=== PATIENT | female | born 1990 | race African-American/Black ===

== ENCOUNTER 2017-08-28 12:52 | Emergency (ER) | payer OTHER, MEDICAID ==
[~2017-08-28] VITALS: Ht 167.6 cm; Wt 90.7 kg
[~2017-08-28 12:52] MED LIST: ACETAMINOPHEN-1 EAC1 PO; DIPHENHIST50 MG PO; PENICILLIN V P500 MG PO; PRENATAL; ZPAK PO
[2017-08-28 13:48] LABS: INFLUENZA A ANTIGEN None Detected (None Detect)
[2017-08-28] MEDS ORDERED: BUTALB-APAP-CA1 EACH PO ×2 (13:56→13:58)
[2017-08-28 14:21] VITALS: BP 122/89
== END 2017-08-28 14:22 | disposition home or self-care (01) ==
LOC: M.ERS 12:52
PROVIDERS: Physician Assistant
DX: J11.1 Influenza due to unidentified influenza virus with other respiratory manifestations (principal); Z98.890 Other specified postprocedural states

== ENCOUNTER 2018-06-26 18:57 | Emergency (ER) | payer MEDICAID ==
[~2018-06-26] VITALS: Ht 172.7 cm; Wt 90.7 kg
[~2018-06-26 18:57] MED LIST changes: +BUTALB-APAP-CA1 EACH PO
[2018-06-26] MEDS ORDERED: DICLEGIS DR 101 EACH PO (19:08)
[2018-06-26 19:15] LABS: URINE BILIRUBIN NEGATIVE (Negative); URINE BLOOD 1+ (Negative); URINE CLARITY CLEAR; URINE COLOR YELLOW; URINE GLUCOSE-RANDOM NEGATIVE (Negative); URINE KETONES NEGATIVE (Negative); URINE LEUKOCYTES-REFLEX NEGATIVE (Negative); URINE NITRITE-REFLEX NEGATIVE (Negative); URINE PROTEIN NEGATIVE (Negative)
[2018-06-26 19:25] LABS: SQUAMOUS >10 Many /LPF (0-3)
[2018-06-26 19:26] LABS: BACTERIA-REFLEX 1-9 Few /HPF (None Seen); CASTS None Seen /LPF (None Seen); CRYSTALS None Seen /LPF (None Seen); URINE RBC 0-2 Rare /HPF (0-2); URINE WBC-REFLEX 0-5 Rare /HPF (0-5)
[2018-06-26 19:29] LABS: ABSOLUTE BASOPHILS 0.1 thou/uL (0.0-0.2); ABSOLUTE EOSINOPHILS 0.2 thou/uL (0.0-0.7); ABSOLUTE LYMPHOCYTES 3.1 thou/uL (0.8-5.3); ABSOLUTE NEUTROPHILS 4.5 thou/uL (1.6-8.1); BASOPHILS 0.6 %; EOSINOPHILS 2.2 %; HEMOGLOBIN 11.8 gm/dL (12.0-15.0); LYMPHOCYTES 34.9 %; MCH 27.9 pg (26.0-34.0); MCHC 33.7 g/dL (28.0-37.0); MCV 82.9 fL (80.0-100.0); MONOCYTES 11.6 %; MPV 9.4 fl. (7.2-11.1); NUCLEATED RBCS 0 /100WBC; PLATELET COUNT* 211 thou/uL (150-400); POLYS 50.7 %; RBC 4.22 mil/uL (4.20-5.00); RDW-CV 14.4 % (10.5-14.5); WBC 8.9 thou/uL (4.0-11.0)
[2018-06-26 19:40] LABS: CREATININE 0.7 mg/dL (0.6-1.3); POTASSIUM 3.5 mmol/L (3.5-5.1)
[2018-06-26 19:44] LABS: ALBUMIN 3.6 g/dL (3.4-5.0); TOTAL BILIRUBIN 0.5 mg/dL (<0.1-1.0); TOTAL PROTEIN 7.2 g/dL (6.4-8.2)
[2018-06-26 21:20] VITALS: BP 113/65
== END 2018-06-26 21:22 | disposition home or self-care (01) ==
LOC: M.ERS 18:57
PROVIDERS: Physician Assistant
DX: O26.891 Other specified pregnancy related conditions, first trimester (principal); R10.32 Left lower quadrant pain; Z3A.01 Less than 8 weeks gestation of pregnancy; Z98.890 Other specified postprocedural states

== ENCOUNTER 2018-07-19 17:38 | Emergency (ER) | payer OTHER, MEDICAID ==
[~2018-07-19] VITALS: Ht 167.6 cm; Wt 86.2 kg
[~2018-07-19 17:38] MED LIST changes: +DICLEGIS DR 101 EACH PO
[2018-07-19] MEDS ORDERED: PRENATAL PO (17:44)
[2018-07-19 18:31] LABS: ABSOLUTE EOSINOPHILS 0.1 thou/uL (0.0-0.7); ABSOLUTE LYMPHOCYTES 2.5 thou/uL (0.8-5.3); ABSOLUTE MONOCYTES 0.7 thou/uL (0.0-1.2); BASOPHILS 0.4 %; HEMATOCRIT 39.7 % (37.0-47.0); HEMOGLOBIN 13.7 gm/dL (12.0-15.0); LYMPHOCYTES 33.9 %; MCH 28.6 pg (26.0-34.0); MCHC 34.4 g/dL (28.0-37.0); MCV 83.3 fL (80.0-100.0); MONOCYTES 9.6 %; MPV 9.5 fl. (7.2-11.1); NUCLEATED RBCS 0 /100WBC; PLATELET COUNT* 250 thou/uL (150-400); POLYS 54.1 %; RBC 4.77 mil/uL (4.20-5.00); RDW-CV 14.2 % (10.5-14.5); WBC 7.4 thou/uL (4.0-11.0)
[2018-07-19 18:38] LABS: CALCIUM 9.6 mg/dL (8.5-10.1); CREATININE 0.7 mg/dL (0.6-1.3); POTASSIUM 3.8 mmol/L (3.5-5.1)
[2018-07-19 18:43] LABS: ALBUMIN 3.8 g/dL (3.4-5.0); TOTAL PROTEIN 7.9 g/dL (6.4-8.2)
[2018-07-19 19:35] LABS: URINE BILIRUBIN NEGATIVE (Negative); URINE BLOOD NEGATIVE (Negative); URINE CLARITY CLEAR; URINE COLOR YELLOW; URINE GLUCOSE-RANDOM NEGATIVE (Negative); URINE KETONES 1+ (Negative); URINE LEUKOCYTES-REFLEX NEGATIVE (Negative); URINE NITRITE-REFLEX NEGATIVE (Negative); URINE PROTEIN NEGATIVE (Negative); URINE UROBILINOGEN 0.2 E.U./dl (0.2-1.0)
[2018-07-19] MEDS ORDERED: ZOFRAN4 MG PO (19:42)
[2018-07-19 19:51] VITALS: BP 111/73
== END 2018-07-19 19:53 | disposition home or self-care (01) ==
LOC: M.ERS 17:38
PROVIDERS: Nurse Practitioner Family
DX: O21.8 Other vomiting complicating pregnancy (principal); Z98.890 Other specified postprocedural states; Z3A.10 10 weeks gestation of pregnancy

== ENCOUNTER 2018-08-09 09:55 | Emergency (ER) | payer OTHER, MEDICAID ==
[~2018-08-09] VITALS: Ht 172.7 cm; Wt 88.0 kg
[~2018-08-09 09:55] MED LIST changes: +PRENATAL PO; +ZOFRAN4 MG PO
[2018-08-09 11:25] LABS: INFLUENZA A ANTIGEN None Detected (None Detect); INFLUENZA B ANTIGEN None Detected (None Detect)
[2018-08-09 11:58] VITALS: BP 117/77
== END 2018-08-09 11:59 | disposition home or self-care (01) ==
LOC: M.ERS 09:55
PROVIDERS: Nurse Practitioner Family
DX: O26.892 Other specified pregnancy related conditions, second trimester (principal); J00 Acute nasopharyngitis [common cold]; Z98.890 Other specified postprocedural states; Z3A.14 14 weeks gestation of pregnancy

== ENCOUNTER 2019-01-13 06:30 | Emergency (ER) | payer OTHER, MEDICAID ==
[~2019-01-13] VITALS: Ht 167.6 cm; Wt 103.0 kg
[2019-01-13 07:58] VITALS: BP 125/75
== END 2019-01-13 07:16 | disposition home or self-care (01) ==
LOC: M.ERS 06:30
DX: O99.513 Diseases of the respiratory system complicating pregnancy, third trimester (principal); J02.8 Acute pharyngitis due to other specified organisms; B97.89 Other viral agents as the cause of diseases classified elsewhere; Z98.890 Other specified postprocedural states; Z3A.36 36 weeks gestation of pregnancy

== ENCOUNTER 2019-07-17 12:35 | Emergency (ER) | payer OTHER ==
[~2019-07-17] VITALS: Ht 167.6 cm; Wt 93.9 kg
[2019-07-17 12:46] VITALS: BP 134/89
[2019-07-17 13:08] LABS: INFLUENZA A ANTIGEN Negative (Negative)
== END 2019-07-17 13:48 | disposition home or self-care (01) ==
LOC: M.ERS 12:35
PROVIDERS: Physician Assistant
DX: J10.1 Influenza due to other identified influenza virus with other respiratory manifestations (principal); Z98.890 Other specified postprocedural states

== ENCOUNTER 2020-08-18 20:12 | Emergency (ER) | payer OTHER ==
[~2020-08-18] VITALS: Ht 167.6 cm; Wt 99.8 kg
[2020-08-18 20:57] LABS: INFLUENZA A ANTIGEN Negative (Negative); INFLUENZA B ANTIGEN Negative (Negative)
[2020-08-18] MEDS ORDERED: PROAIR HFA8.5 GM INH (21:30)
[2020-08-18] MEDS ORDERED: PREDNISONE50 MG PO (21:30)
[2020-08-18 21:38] VITALS: BP 144/80
== END 2020-08-18 21:39 | disposition home or self-care (01) ==
LOC: M.ERS 20:12
PROVIDERS: Emergency Medicine
DX: J40 Bronchitis, not specified as acute or chronic (principal); Z20.828 Contact with and (suspected) exposure to other viral communicable diseases; Z98.890 Other specified postprocedural states

== ENCOUNTER 2020-12-12 17:03 | Emergency (ER) | payer MEDICAID ==
[~2020-12-12] VITALS: Ht 167.6 cm; Wt 99.8 kg
[~2020-12-12 17:03] MED LIST changes: +PREDNISONE50 MG PO; +PROAIR HFA8.5 GM INH
[2020-12-12 17:41] LABS: ABSOLUTE BASOPHILS 0.1 thou/uL (0.0-0.2); ABSOLUTE EOSINOPHILS 0.6 thou/uL (0.0-0.7); ABSOLUTE LYMPHOCYTES 3.4 thou/uL (0.8-5.3); ABSOLUTE MONOCYTES 0.8 thou/uL (0.0-1.2); ABSOLUTE NEUTROPHILS 3.2 thou/uL (1.6-8.1); BASOPHILS 0.8 %; EOSINOPHILS 7.8 %; HEMATOCRIT 34.3 % (37.0-47.0); HEMOGLOBIN 11.3 gm/dL (12.0-15.0); LYMPHOCYTES 42.6 %; MCH 25.5 pg (26.0-34.0); MCV 77.4 fL (80.0-100.0); MONOCYTES 9.3 %; NUCLEATED RBCS 0 /100WBC; PLATELET COUNT* 242 thou/uL (150-400); POLYS 39.5 %; RBC 4.43 mil/uL (4.20-5.00); RDW-CV 15.5 % (10.5-14.5)
[2020-12-12 17:52] LABS: CALCIUM 8.7 mg/dL (8.5-10.1); CREATININE 0.9 mg/dL (0.6-1.3); POTASSIUM 3.7 mmol/L (3.5-5.1)
[2020-12-12 17:55] LABS: ALBUMIN 3.5 g/dL (3.4-5.0); TOTAL BILIRUBIN 0.3 mg/dL (<0.1-1.0); TOTAL PROTEIN 7.2 g/dL (6.4-8.2)
[2020-12-12 18:35] VITALS: BP 122/84
--- NOTE | 2020-12-13 11:28 | EKG ---
[place] [address] ELECTROCARDIOGRAM REPORT Name: ISAIJERILYN SHANIKA Room: [facility]#: [id number] Admission: 12/12/20 Attend Phys: Discharge: 12/12/20 Date of : 88 Date of Service: 12/12/20 1718 Report #: [id number] THIS REPORT FOR: //name// [facility] ED Test Date: 2020-12-12 Test Time: 17:18:05 Pat Name: JERILYN ALEX Department: Room: Gender: F Physical Trainer: : 1990 Requested By: Sam Brown Order Number: [id number] MD: [place] Measurements Intervals [place] Rate: 65 P: 11 W[place]: 128 QRS: 18 QRSD: 85 T: 1 QT: 378 QTc: 393 Interpretive Statements Sinus rhythm RSR' in V1 or V2, probably normal variant No previous ECG available for comparison Electronically Signed On 12-13-2020 11:28:09 CDT by [place] [email or web address] <ELECTRONICALLY SIGNED> By: [place] MD, [facility] 12/13/20 1128 1718 1718 [place] MD, [facility] /EPI
== END 2020-12-12 18:35 | disposition home or self-care (01) ==
LOC: M.ERS 17:03
PROVIDERS: Emergency Medicine Emergency Medical Services
DX: I95.1 Orthostatic hypotension (principal); Z98.890 Other specified postprocedural states

== ENCOUNTER 2020-12-29 10:52 | Emergency (ER) | payer MEDICAID ==
[~2020-12-29] VITALS: Ht 167.6 cm; Wt 99.8 kg
[2020-12-29 11:00] VITALS: BP 138/76
[2020-12-29] MEDS ORDERED: AMOXIL 875 MG875 M1 PO (11:10)
== END 2020-12-29 11:28 | disposition home or self-care (01) ==
LOC: M.ERS 10:52
DX: J02.9 Acute pharyngitis, unspecified (principal); Z98.890 Other specified postprocedural states

== ENCOUNTER 2021-02-12 15:00 | Emergency (ER) | payer OTHER ==
[~2021-02-12] VITALS: Ht 167.6 cm; Wt 99.8 kg
[~2021-02-12 15:00] MED LIST changes: +AMOXIL 875 MG875 M1 PO
[2021-02-12 19:39] LABS: ABSOLUTE EOSINOPHILS 0.1 thou/uL (0.0-0.7); ABSOLUTE LYMPHOCYTES 0.8 thou/uL (0.8-5.3); ABSOLUTE MONOCYTES 0.9 thou/uL (0.0-1.2); ABSOLUTE NEUTROPHILS 5.6 thou/uL (1.6-8.1); BASOPHILS 0.4 %; EOSINOPHILS 0.9 %; HEMATOCRIT 36.1 % (37.0-47.0); HEMOGLOBIN 12.3 gm/dL (12.0-15.0); LYMPHOCYTES 10.3 %; MCH 25.5 pg (26.0-34.0); MONOCYTES 12.8 %; MPV 8.3 fl. (7.2-11.1); NUCLEATED RBCS 0 /100WBC; PLATELET COUNT* 217 thou/uL (150-400); POLYS 75.6 %; RBC 4.82 mil/uL (4.20-5.00); RDW-CV 15.7 % (10.5-14.5); WBC 7.4 thou/uL (4.0-11.0)
[2021-02-12 20:03] LABS: CALCIUM 8.8 mg/dL (8.5-10.1); POTASSIUM 3.7 mmol/L (3.5-5.1)
[2021-02-12 20:07] LABS: ALBUMIN 4.4 g/dL (3.4-5.0); TOTAL BILIRUBIN 0.6 mg/dL (<0.1-1.0); TOTAL PROTEIN 8.2 g/dL (6.4-8.2)
[2021-02-12] MEDS ORDERED: ZOFRAN ODT4 MG PO (20:52)
[2021-02-12 21:32] VITALS: BP 128/57
--- NOTE | 2021-02-13 12:59 | EKG ---
[place] [address] ELECTROCARDIOGRAM REPORT Name: ISAIJERILYN SHANIKA Room: [facility]#: [id number] Admission: 02/12/21 Attend Phys: Discharge: 02/12/21 Date of : [birth year] Date of Service: 02/12/211911 Report #: [id number] THIS REPORT FOR: //name// [facility] ED Test Date: 2021-02-12 Test Time: 19:12:02 Pat Name: JERILYN ALEX Department: Room: Gender: F [employer]: [place] : 1990 Requested By: Niurka Macdonald Order Number: [id number] MD: [place] Measurements Intervals [place] Rate: 94 P: 30 [place]: 134 QRS: 21 QRSD: 82 T: 13 QT: 312 QTc: 391 Interpretive Statements Sinus rhythm RSR' in V1 or V2, probably normal variant Compared to ECG 12/12/2020 17:18:05 No significant changes Electronically Signed On 02-13-2021 12:59:08 CDT by [place] [email or web address] <ELECTRONICALLY SIGNED> By: [place] MD, [facility]AC 02/13/21 1259 11 11 [place] MD, [facility] /EPI
== END 2021-02-12 21:34 | disposition home or self-care (01) ==
LOC: M.ERS 15:00
PROVIDERS: Nurse Practitioner Family
DX: U07.1 COVID-19 (principal); E86.0 Dehydration; Z98.890 Other specified postprocedural states

== ENCOUNTER 2021-02-23 11:44 | Emergency (ER) | payer OTHER ==
[~2021-02-23] VITALS: Ht 167.6 cm; Wt 99.8 kg
[~2021-02-23 11:44] MED LIST changes: +ZOFRAN ODT4 MG PO
[2021-02-23 12:23] VITALS: BP 107/72
== END 2021-02-23 12:24 | disposition home or self-care (01) ==
LOC: M.ERS 11:44
DX: U07.1 COVID-19 (principal)

== ENCOUNTER 2021-05-30 11:14 | Emergency (ER) | payer OTHER, MEDICAID ==
[~2021-05-30] VITALS: Ht 167.6 cm; Wt 95.3 kg
[2021-05-30 11:28] VITALS: BP 129/85
[2021-05-30] MEDS ORDERED: IBUPROFEN 800800 M1 PO (12:50)
[2021-05-30] MEDS ORDERED: FLEXERIL PO (12:50)
== END 2021-05-30 12:57 | disposition home or self-care (01) ==
LOC: M.ERS 11:14
DX: S29.012A Strain of muscle and tendon of back wall of thorax, initial encounter (principal); X58.XXXA Exposure to other specified factors, initial encounter; Y93.89 Activity, other specified; Y92.89 Other specified places as the place of occurrence of the external cause; Y99.8 Other external cause status

== ENCOUNTER 2021-08-14 16:18 | Emergency (ER) | payer OTHER, MEDICAID ==
[~2021-08-14] VITALS: Ht 167.6 cm; Wt 99.8 kg
[~2021-08-14 16:18] MED LIST changes: +FLEXERIL PO; +IBUPROFEN 800800 M1 PO
[2021-08-14 17:21] LABS: INFLUENZA A ANTIGEN Negative (Negative); INFLUENZA B ANTIGEN Negative (Negative)
[2021-08-14 17:25] VITALS: BP 132/90
== END 2021-08-14 17:25 | disposition home or self-care (01) ==
LOC: M.ERS 16:18
PROVIDERS: Student in an Organized Health Care Education/Training Program
DX: J06.9 Acute upper respiratory infection, unspecified (principal); Z20.822 Contact with and (suspected) exposure to COVID-19; Z98.890 Other specified postprocedural states